=== PATIENT | female | born 1985 | race Caucasian/White ===

== ENCOUNTER 2017-08-02 16:51 | Emergency (ER) | payer BC, OTHER ==
[~2017-08-02] VITALS: Ht 177.8 cm; Wt 117.9 kg
[2017-08-02 17:18] VITALS: BP 128/82
[2017-08-02] MEDS ORDERED: HYDROcodone-ACET 10/325MG TAB PO ONE (19:00)
[2017-08-02] MEDS ORDERED: LIDOCAINE 1% HCL (LOCAL ANESTH.) INJ 20ML MDV IJ ONE (19:00)
[2017-08-02] MEDS ORDERED: LIDOCAINE 1% HCL (LOCAL ANESTH.) INJ 20ML MDV ONE (19:09)
[2017-08-02] MEDS ORDERED: BACITRACIN-POLYMYXIN B TOPICAL OINT UD TOP ONE (19:53)
[2017-08-02] MEDS ORDERED: BACITRACIN INJ 50000 UNIT VIAL TOP ONE (20:00)
[2017-08-02] MEDS ORDERED: TETANUS-DIPTH-ACEL PERTUSSIS 0.5ML SYRG IM ONE (20:00)
== END 2017-08-02 20:15 | disposition home or self-care (01) ==
LOC: ER 16:51
DX: S81.811A Laceration without foreign body, right lower leg, initial encounter (principal); Z88.0 Allergy status to penicillin; W45.8XXA Other foreign body or object entering through skin, initial encounter; Y93.89 Activity, other specified; Y99.8 Other external cause status; Y92.89 Other specified places as the place of occurrence of the external cause
CPT/HCPCS: 12034; 90471; 99284; J2001